=== PATIENT | male | born 1985 | race African-American/Black ===

== ENCOUNTER 2025-10-03 08:45 | Day surgery (SDC) | payer MEDICAID ==
[~2025-10-03 08:45] MED LIST: Propofol 200 MG/20 ML SDV ONE; fentaNYL 100 MCG/2 ML SDV ONE
[2025-10-03] MEDS: Lactated Ringers 1,000 ML IV SCH (09:04)
[2025-10-03] MEDS ORDERED: Propofol 200 MG/20 ML SDV ONE ×3 (10:42→11:03)
== END 2025-10-03 12:28 | disposition home or self-care (01) ==
LOC: VM.SDS 08:45
PROVIDERS: ATTEND Student in an Organized Health Care Education/Training Program
DX: K62.5 Hemorrhage of anus and rectum (principal); K64.8 Other hemorrhoids; K29.70 Gastritis, unspecified, without bleeding; E66.01 Morbid (severe) obesity due to excess calories; K59.00 Constipation, unspecified; Z68.42 Body mass index [BMI] 45.0-49.9, adult; Z79.899 Other long term (current) drug therapy; Z87.891 Personal history of nicotine dependence
CPT/HCPCS: 00813; J2704; J3010; J7120